=== PATIENT | male | born 1960 | race Caucasian/White ===

== ENCOUNTER 2019-03-25 07:01 | Day surgery (SDC) | payer OTHER ==
[~2019-03-25] VITALS: Ht 165.1 cm; Wt 82.0 kg
[2019-03-25 08:42] VITALS: Ht 165.1 cm; Wt 82.0 kg
[2019-03-25] MEDS ORDERED: NO ACTIVE MEDS (08:45)
[2019-03-25 09:12] VITALS: BP 169/79; PULSE 62; RESP 16
[2019-03-25] MEDS ORDERED: MIDAZOLAM 1 MG/ML 2 ML INJ ONE (09:42)
[2019-03-25] MEDS ORDERED: FENTAnyl 50 MCG/ML VIAL ONE (09:42)
[2019-03-25 10:05] VITALS: BP 132/80; PULSE 62; RESP 15
== END 2019-03-25 11:14 | disposition home or self-care (01) ==
LOC: GIL 07:01
PROVIDERS: ATTEND Internal Medicine Gastroenterology
DX: K92.1 Melena (principal); K64.8 Other hemorrhoids
CPT/HCPCS: 45378; J2250; J3010; Z7610